=== PATIENT | female | born 1995 ===

== ENCOUNTER 2017-06-02 10:13 | Emergency (ER) | payer OTHER ==
[2017-06-02 10:22] VITALS: BP 126/82
--- NOTE | 2017-06-02 10:38 | UC ---
Throat Pain/Nasal Harish HPI - HPI Summary HPI Summary: RIGHT SIDED SORE THROAT AND TONSIL SWELLING, WORSENING FOR SIX DAYS. - History of Current Complaint Chief Complaint: UCGeneralIllness Stated Complaint: ST Time Seen by Provider: 06/02/17 10:16 Hx Obtained From: Patient Hx Last Menstrual Period: present Onset/Duration: Gradual Onset, Lasting Days, Still Present Severity: Moderate Cough: None Associated Signs & Symptoms: Positive: Dysphagia, Hoarseness - Epiglottits Risk Factors Epiglottis Risk Factors: Negative - Allergies/Home Medications Allergies/Adverse Reactions: Allergies Allergy/AdvReac Type Severity Reaction Status Date / Time No Known Allergies Allergy Verified 06/02/17 10:21 Home Medications: Home Medications Lisdexamfetamine Dimesylate [Vyvanse] 20 mg PO 06/02/17 [History] PMH/Surg Hx/FS Hx/Imm Hx Previously Healthy: Yes - Surgical History Surgical History: None - Family History Known Family History: Negative: Respiratory Disease - Social History Occupation: Student Lives: With Family Alcohol Use: Weekly Substance Use Type: None Smoking Status (MU): Never Smoked Tobacco - Immunization History Most Recent Influenza Vaccination: not current Review of Systems Constitutional: Negative Skin: Negative Eyes: Negative ENT: Sore Throat Respiratory: Negative Cardiovascular: Negative Gastrointestinal: Negative Genitourinary: Negative Motor: Negative Neurovascular: Negative Musculoskeletal: Negative Neurological: Negative Psychological: Negative Is Patient Immunocompromised?: No All Other Systems Reviewed And Are Negative: Yes Physical Exam Triage Information Reviewed: Yes Appearance: No Pain Distress, Well-Nourished, Ill-Appearing Vital Signs: Initial Vital Signs Temp 97.8 F 06/02/17 10:18 Pulse 88 06/02/17 10:18 Resp 18 06/02/17 10:18 BP 126/82 06/02/17 10:18 Pulse Ox 100 06/02/17 10:18 Vital Signs Reviewed: Yes Eye Exam: Normal ENT: Positive: Pharyngeal erythema, Tonsillar swelling - RIGHT > LEFT, Tonsillar exudate Dental Exam: Normal Neck exam: Normal Neck: Positive: Supple, Nontender, No Lymphadenopathy Respiratory Exam: Normal Respiratory: Positive: Chest non-tender, Lungs clear, Normal breath sounds, No respiratory distress, No accessory muscle use Cardiovascular Exam: Normal Cardiovascular: Positive: RRR, No Murmur, Pulses Normal, Brisk Capillary Refill Abdomen Description: Positive: Nontender, No Organomegaly Musculoskeletal Exam: Normal Neurological Exam: Normal Psychological Exam: Normal Skin Exam: Normal Throat Pain/Nasal Course/Dx - Differential Dx/Diagnosis Differential Diagnosis/HQI/PQRI: Mononucleosis, Peritonsillar Abscess, Pharyngitis, Tonsillitis Provider Diagnoses: TONSILITIS Discharge - Discharge Plan Condition: Stable Disposition: HOME Prescriptions: Clindamycin Cap(NF) [Clindamycin Cap 300 mg Cap(NF)] 300 mg PO TID #30 cap Patient Education Materials: Tonsillitis (ED) [place]: [facility] [place] [facility] [place] [facility] [Outside]
== END 2017-06-02 10:45 | disposition home or self-care (01) ==
LOC: UCCORT 10:13
DX: J03.90 Acute tonsillitis, unspecified (principal)
CPT/HCPCS: 87070; 99202; G0463